=== PATIENT | female | born 1970 | race Caucasian/White ===

== ENCOUNTER → 2017-03-25 | Outpatient (CLI) | payer BC ==
[~2017-03-25] MED LIST: ESTR1TAB24 PO; FRSM10B60; HYDR1TAB75 PO
--- NOTE | 2017-03-30 17:26 | Diagnostic Imaging Report ---
Bilateral screening mammogram The current study was also evaluated with a Computer Aided Detection (CAD) system. INDICATION: Screening. No current complaints stated on the questionnaire. COMPARISON: 02/18/16. FINDINGS: The breasts are composed of heterogeneously dense parenchyma which may decrease mammographic sensitivity. Bilateral retroglandular symmetric appearing implants are seen. Benign-appearing calcifications are noted. Allowing for technique and positional differences, no suspicious change is seen. IMPRESSION: No significant change. ACR BI-RADS Category 2: Benign findings. Result letter will be mailed to the patient. Note: At least 10% of breast cancer is not imaged by mammography. Dictated by: Dictated on workstation # [id number]
== END ==
LOC: RAD 10:33
PROVIDERS: ATTEND Family Medicine
DX: Z12.31 Encounter for screening mammogram for malignant neoplasm of breast (principal)
CPT/HCPCS: 77067

== ENCOUNTER 2018-10-10 09:30 | Outpatient (CLI) | payer BC ==
[~2018-10-10] VITALS: Ht 170.2 cm; Wt 73.5 kg
[2018-10-10] MEDS ORDERED: MINO100C2 PO (09:43)
[2018-10-10] MEDS ORDERED: THYR60TA2 PO (09:43)
[2018-10-10] MEDS ORDERED: CNC1KV IM (09:43)
[2018-10-10] MEDS ORDERED: AMIT10TA6 PO (09:43)
[2018-10-10] MEDS ORDERED: MONT10TA24 PO (09:43)
[2018-10-10] MEDS ORDERED: ESTR20VI IM (09:43)
[2018-10-10] MEDS ORDERED: POTA20TA15 PO (09:43)
== END 2018-10-10 10:08 | disposition home or self-care (01) ==
LOC: PREOP 09:30
PROVIDERS: ATTEND Surgery
DX: Z01.818 Encounter for other preprocedural examination (principal)

== ENCOUNTER 2018-10-19 07:03 | Day surgery (SDC) | payer BC ==
[~2018-10-19] VITALS: Ht 170.2 cm; Wt 75.3 kg
[~2018-10-19 07:03] MED LIST changes: +AMIT10TA6 PO; +CNC1KV IM; +ESTR20VI IM; +MINO100C2 PO; +MONT10TA24 PO; +POTA20TA15 PO; +THYR60TA2 PO
[2018-10-19 07:15] VITALS: BP 139/97
[2018-10-19] MEDS ORDERED: ceFAZolin INJECTION 1,000 MG in NS (IVPB) 50 ML IV ONE (07:15)
[2018-10-19] MEDS ORDERED: CATHETER FLUSH 10 ML SYR IV PRN (07:30)
[2018-10-19] MEDS: LACTATED RINGERS 1,000 ML IV PRN ×2 (07:30→10:24)
[2018-10-19 07:48] LABS: BASOPHILS # (AUTO) 0.1 10^3/uL (0.0-0.1); BASOPHILS % (AUTO) 1 % (0-10); EOSINOPHILS # (AUTO) 0.2 10^3/uL (0.0-0.3); EOSINOPHILS % (AUTO) 3 % (0-10); HEMATOCRIT 45 % (35-52); HEMOGLOBIN 15.1 G/DL (11.5-16.0); LYMPHOCYTES # (AUTO) 2.1 X 10^3 (1.0-4.0); LYMPHOCYTES % (AUTO) 37 % (12-44); MEAN CORPUSCULAR HEMOGLOBIN 29 PG (25-34); MEAN CORPUSCULAR HGB CONC 33 G/DL (32-36); MEAN CORPUSCULAR VOLUME 88 FL (80-99); MONOCYTES # (AUTO) 0.4 X 10^3 (0.0-1.0); MONOCYTES % (AUTO) 8 % (0-12); NEUTROPHILS # (AUTO) 3.1 X 10^3 (1.8-7.8); NEUTROPHILS % (AUTO) 52 % (42-75); PLATELET COUNT 160 10^3/uL (130-400); RED BLOOD COUNT 5.14 10^6/uL (4.35-5.85); RED CELL DISTRIBUTION WIDTH 12.9 % (10.0-14.5); WHITE BLOOD COUNT 5.8 10^3/uL (4.3-11.0)
[2018-10-19] MEDS ORDERED: SCOPOLAMINE 1.5 MG (TRANSDERM-SCOP) PATCH TOP ONE (08:00)
[2018-10-19] MEDS ORDERED: FAMOTIDINE 20MG/2ML IV (PEPCID) IV ONE (08:00)
[2018-10-19] MEDS ORDERED: ONDANSETRON 4 MG/2 ML (SDV) Z0FRAN IV ONE (08:00)
--- NOTE | 2018-10-19 08:10 | Progress Note-Pre Operative ---
Pre-Operative Progress Note H&P Reviewed The H&P was reviewed, patient examined and no changes noted. Date Seen by Provider: Oct 19, 2018 Time Seen by Provider: 08:00 Date H&P Reviewed: Oct 19, 2018 Time H&P Reviewed: 08:05 Pre-Operative Diagnosis: Symptomatic ventral abdominal incisional hernia BON UREÑA APRN Oct 19, 2018 8:09 am
[2018-10-19] MEDS ORDERED: HYDR-3816 PO (08:12)
--- NOTE | 2018-10-19 08:13 | Discharge Inst-Surgical ---
D/C Lap Instructions-KIDO New, Converted, or Re-Newed RX: RX on Chart Follow Up Appt in 2 weeks Activity as tolerated No driving for 24 hours No driving while on pain medications Incentive Spirometry use every 2 hours while awake Regular Diet Symptoms to Report: Fever over 101 degree F, Nausea/Vomiting Infection Signs and Symptoms to report: Increased redness, Foul odor of wound, Increased drainage Bathing instructions: May shower Operative Area Clean/Dry; Keep incision clean/dry If any problems/questions: Contact your physician or go to Emergency Room BON UREÑA APRN Oct 19, 2018 8:13 am
[2018-10-19] MEDS ORDERED: HYDROcodone/APAP 5 MG/325 MG (LORTAB) TAB PO ONE (08:15)
[2018-10-19] MEDS ORDERED: ACETAMINOPHEN 325 MG TABLET PO PRN (08:15)
[2018-10-19] MEDS ORDERED: morphine INJ 10 MG/ML 1ML (SYR OR VIAL) IVP PRN (08:15)
[2018-10-19] MEDS ORDERED: ONDANSETRON 4 MG/2 ML (SDV) Z0FRAN IVP PRN ×2 (08:15→10:30)
[2018-10-19] MEDS ORDERED: OXYC1TAB16 PO (08:22)
[2018-10-19] MEDS ORDERED: BUP/EPI 0.5% 1:200,000 (SENSORCAINE) 30 ML VIAL ONE (08:24)
[2018-10-19] MEDS ORDERED: oxyCODONE/APAP 5/325MG (PERCOCET 5) TABLET PO ONE (08:30)
[2018-10-19] MEDS ORDERED: fentaNYL INJECTION 100 MCG/2 ML AMP ONE (08:31)
[2018-10-19] MEDS ORDERED: MIDAZOLAM 2 MG/2 ML (VERSED) VIAL ONE (08:31)
[2018-10-19] MEDS ORDERED: DEXAMETHASONE 10 MG/ML (DECADRON) 1 ML VIAL ONE (08:40)
[2018-10-19] MEDS ORDERED: SEVOFLURANE (ULTANE) 15 ML INHAL SOLN ONE ×4 (08:40→10:01)
[2018-10-19] MEDS ORDERED: LIDOCAINE PF 2% 5 ML (XYLOCAINE) VIAL ONE (08:40)
[2018-10-19] MEDS ORDERED: proPOfol 200 MG/20 ML (DIPRIVAN) VIAL IV ONE (08:40)
[2018-10-19] MEDS ORDERED: ONDANSETRON 4 MG/2 ML (SDV) Z0FRAN ONE (08:40)
[2018-10-19] MEDS ORDERED: ROCURONIUM 10 MG/ML 5 ML SYRINGE IV ONE (08:40)
[2018-10-19] MEDS ORDERED: KETOROLAC 30 MG/ML VIAL ONE (09:44)
[2018-10-19] MEDS ORDERED: BUPIVACAINE 0.5% 30 ML (SENSORCAINE) VIAL ONE (09:44)
[2018-10-19] MEDS ORDERED: GLYCOPYRROLATE 0.2 MG/ML (ROBINUL) 2 ML VIAL ONE (09:59)
[2018-10-19] MEDS ORDERED: NEOSTIGMINE 1 MG/ML 5 ML SYRINGE ONE (09:59)
--- NOTE | 2018-10-19 10:07 | Progress Note-Post Operative ---
Post-Operative Progess Note Surgeon (s)/Kitchen Utility Associate (s) Surgeon JHONY SENA MD Kitchen Utility Associate: gautam cohen APRN Pre-Operative Diagnosis Symptomatic reducible ventral abdominal incisional hernia Post-Operative Diagnosis same(1.5cm) Procedure & Operative Findings Date of Procedure 10/19/18 Procedure Performed/Findings open ventral abd incisional hernia repair with mesh. Anesthesia Type GET Estimated Blood Loss Estimated blood loss (mL): minimal Specimens/Packing Specimens Removed hernia sac and contents. JHONY SENA MD Oct 19, 2018 10:07 am
[2018-10-19] MEDS ORDERED: morphine INJ 10 MG/ML 1ML (SYR OR VIAL) IVP ONE (10:30)
[2018-10-19] MEDS ORDERED: HYDROmorphone 2 MG/ML VIAL (DILAUDID) IV ONE (10:30)
[2018-10-19] MEDS ORDERED: PROMETHAZINE INJ 25 MG/ML (PHENERGAN) AMP IVP ONE (10:30)
[2018-10-19 11:15] VITALS: BP 130/92
[2018-10-19] MEDS ORDERED: oxyCODONE/APAP 5/325MG (PERCOCET 5) TABLET ONE (11:21)
[2018-10-19 11:45] VITALS: BP 115/86
[2018-10-19 12:15] VITALS: BP 117/78
[2018-10-19 12:25] VITALS: BP 117/78
--- NOTE | 2018-10-19 13:38 | Anesthesia-General Post-Op ---
General Patient Condition Mental Status/LOC: Same as Preop Cardiovascular: Satisfactory Nausea/Vomiting: Absent Respiratory: Satisfactory Pain: Controlled Complications: Absent Post Op Complications Complications None Follow Up Care/Instructions Patient Instructions None needed. Anesthesia/Patient Condition Patient Condition Patient is doing well, no complaints, stable vital signs, no apparent adverse anesthesia problems. No complications reported per nursing. PHYLLIS PRADO CRNA Oct 19, 2018 13:38
--- NOTE | 2018-10-19 15:34 | OPERATIVE REPORT ---
DATE OF SERVICE: 10/19/2018 ATTENDING PRIMARY CARE PHYSICIAN: Dr. Rankin. PREOPERATIVE DIAGNOSIS: Symptomatic reducible periumbilical incisional hernia. POSTOPERATIVE DIAGNOSIS: Symptomatic reducible periumbilical incisional hernia with a defect approximately 1.5 cm in size. PROCEDURE: Open ventral abdominal incisional hernia repair with mesh. SURGEON: Jhony Sena MD LEAD NITRATE PROCESSOR: Max Almaraz APRN ANESTHESIA: General endotracheal. ESTIMATED BLOOD LOSS: Minimal. FINDINGS: A small ventral abdominal incisional hernia with omentum within the hernia sac. DISPOSITION: The patient tolerated the procedure well. INDICATIONS: The patient is a 48-year-old female, we have seen before in the past. We had initially seen her in 2013 for a small umbilical incisional hernia and she did notice slight discomfort and outpouching. She had had three separate laparoscopic procedures done through the same incision before in the past. At that time, the lesion was easily reducible and she wanted to proceed with conservative therapy at that time. She was seen in the office recently and she had reported that the lesion had grown larger in size and does hurt after eating meals as well as after exercise. Again, there was a small periumbilical incisional hernia with a fascial defect approximately 1.5 cm in size, which was reducible; however, tender to palpation. DESCRIPTION OF PROCEDURE: The patient was brought to the operating room, laid supine on the table. After adequate IV pain and sedative medications and general endotracheal intubation, the abdomen was prepped and draped in standard surgical fashion. A 0.5% Marcaine with epinephrine was then used to anesthetize the overlying skin in the supraumbilical rim. A skin incision was then made in a crescent shape along the previous skin incision site. The subcutaneous tissue was then dissected using electrocautery. The hernia sac was identified and completely dissected out using blunt dissection as well as electrocautery. This was dissected down to the fascial base. The fascial defect was approximately 1.5 cm in size. The hernia sac was then opened using Metzenbaum scissors with only omentum within the hernia sac. The hernia sac as well as the contents within the hernia sac, which included the omentum were then resected using electrocautery with visualization of good hemostasis. There were no omental adhesions towards the anterior abdominal wall upon finger sweeping. A 6.4 coated polypropylene mesh was then placed into the fascial defect and then sutured to the fascia using interrupted 0 Prolene sutures transfascially in a concentric manner. Good hemostasis was observed. The base of the skin of the umbilicus was then tethered to the fascia using [id number] 3-0 Vicryl sutures. Subcutaneous tissue was then reapproximated using 3-0 Vicryl interrupted sutures. Skin was closed using 4-0 Monocryl running subcuticular suture. Wound was then cleaned and covered with Dermabond. The wound was then packed with tonsil sponges followed by 4 x 4 gauze followed by a large Op-Site. The patient tolerated the procedure well. We will recommend keeping the pressure dressing on for at least 5 days to prevent seroma formation and then afterwards just to keep the area clean and dry. She is instructed to do no heavy lifting or exertion for the next 2 weeks, then increase activity as tolerated; however, continue to refrain from heavy lifting and exertion until six weeks total time from the surgery date. Job ID: [id number] DocumentID: [id number] Dictated Date: 10/19/2018 10:25:47 Motorcycle Designer Date: 10/19/2018 15:33:23 Dictated By: JHONY SENA MD
== END 2018-10-19 12:25 | disposition home or self-care (01) ==
LOC: SDC 07:03
PROVIDERS: ATTEND Surgery
DX: K43.2 Incisional hernia without obstruction or gangrene (principal); I10 Essential (primary) hypertension; Z79.899 Other long term (current) drug therapy
CPT/HCPCS: 36415; 85025; 87081; 94664

== ENCOUNTER 2019-02-02 12:00 | Outpatient (CLI) | payer BC ==
[~2019-02-02] VITALS: Ht 170.2 cm; Wt 75.3 kg
[~2019-02-02 12:00] MED LIST changes: +HYDR-3816 PO; +OXYC1TAB16 PO
[2019-02-02] MEDS ORDERED: TRIA1TAB5 PO (12:03)
[2019-02-02] MEDS ORDERED: HYDR-700 PO (12:03)
== END 2019-02-02 12:18 | disposition home or self-care (01) ==
LOC: PREOP 12:00
PROVIDERS: ATTEND Surgery
DX: Z01.818 Encounter for other preprocedural examination (principal)

== ENCOUNTER 2019-02-07 10:48 | Day surgery (SDC) | payer BC ==
[~2019-02-07] VITALS: Ht 170.2 cm; Wt 75.3 kg
[~2019-02-07 10:48] MED LIST changes: +HYDR-700 PO; +TRIA1TAB5 PO
--- OUTSIDE RECORDS SUMMARY | 2019-02-07 10:52 | XMS REPORT | Continuity of Care Document ---
Author Author [facility] Organization [facility] Address Unknown Phone Unavailable Allergies Active Description Code Type Severity Reaction Onset Reported/Identified Relationship to Patient Clinical Status Yes codeine [id number] Drug Allergy Mild N/A 05/13/2009 Medications There is no data. Problems Date Dx Coded Attending Type Code Diagnosis Diagnosed By 01/16/2015 Ot 244.9 01/16/2015 Ot 300.00 01/16/2015 Ot 401.9 01/16/2015 Ot 627.4 01/16/2015 Ot 780.79 01/16/2015 Ot V76.12 04/17/2015 Ot 721.0 12/31/2015 Ot N64.59 03/03/2016 ADAMS WALTER MD Ot N63 03/03/2016 ADAMS WALTER MD Ot N64.4 03/03/2016 ADAMS WALTER MD Ot Z98.82 09/21/2016 Ot 721.0 CERVICAL SPONDYLOSIS 09/21/2016 Ot N64.59 OTHER SIGNS AND SYMPTOMS IN BREAST 09/21/2016 ADAMS WATLER MD Ot N63 UNSPECIFIED LUMP IN BREAST 09/21/2016 ADAMS WALTER MD Ot N64.4 MASTODYNIA 09/21/2016 ADAMS WALTER MD Ot Z98.82 BREAST IMPLANT STATUS 09/21/2016 Ot 721.0 CERVICAL SPONDYLOSIS 09/21/2016 Ot N64.59 OTHER SIGNS AND SYMPTOMS IN BREAST 09/21/2016 ADAMS WALTER MD Ot N63 UNSPECIFIED LUMP IN BREAST 09/21/2016 ADAMS WALTER MD Ot N64.4 MASTODYNIA 09/21/2016 ADAMS WALTER MD Ot Z98.82 BREAST IMPLANT STATUS 09/24/2016 Ot 721.0 CERVICAL SPONDYLOSIS 09/24/2016 Ot N64.59 OTHER SIGNS AND SYMPTOMS IN BREAST 09/24/2016 ADAMS WALTER MD Ot N63 UNSPECIFIED LUMP IN BREAST 09/24/2016 ADAMS WALTER MD Ot N64.4 MASTODYNIA 09/24/2016 ADAMS WALTER MD Ot Z98.82 BREAST IMPLANT STATUS 09/24/2016 Ot 721.0 CERVICAL SPONDYLOSIS 09/24/2016 Ot N64.59 OTHER SIGNS AND SYMPTOMS IN BREAST 09/24/2016 ADAMS WALTER MD Ot N63 UNSPECIFIED LUMP IN BREAST 09/24/2016 ADAMS WALTER MD Ot N64.4 MASTODYNIA 09/24/2016 ADAMS WALTER MD Ot Z98.82 BREAST IMPLANT STATUS 11/30/2016 Ot 721.0 CERVICAL SPONDYLOSIS 11/30/2016 Ot N64.59 OTHER SIGNS AND SYMPTOMS IN BREAST 11/30/2016 ADAMS WALTER MD Ot N63 UNSPECIFIED LUMP IN BREAST 11/30/2016 ADAMS WALTER MD Ot N64.4 MASTODYNIA 11/30/2016 ADAMS WALTER MD Ot Z98.82 BREAST IMPLANT STATUS 04/07/2017 POWER HARPER, ARASELI S Ot Z12.31 ENCNTR SCREEN MAMMOGRAM FOR MALIGNANT NE 06/07/2017 Ot 721.0 CERVICAL SPONDYLOSIS 06/07/2017 Ot N64.59 OTHER SIGNS AND SYMPTOMS IN BREAST 06/07/2017 ADAMS WALTER MD Ot N63 UNSPECIFIED LUMP IN BREAST 06/07/2017 ADAMS WALTER MD Ot N64.4 MASTODYNIA 06/07/2017 ADAMS WALTER MD Ot Z98.82 BREAST IMPLANT STATUS 06/07/2017 POWER HARPER, ARASELI S Ot Z12.31 ENCNTR SCREEN MAMMOGRAM FOR MALIGNANT NE 12/28/2017 Ot 721.0 CERVICAL SPONDYLOSIS 12/28/2017 Ot N64.59 OTHER SIGNS AND SYMPTOMS IN BREAST 12/28/2017 ADAMS WALTER MD Ot N63 UNSPECIFIED LUMP IN BREAST 12/28/2017 ADAMS WALTER MD Ot N64.4 MASTODYNIA 12/28/2017 ADAMS WALTER MD Ot Z98.82 BREAST IMPLANT STATUS 12/28/2017 POWER HARPER, ARASELI S Ot Z12.31 ENCNTR SCREEN MAMMOGRAM FOR MALIGNANT NE 01/05/2018 Ot 721.0 CERVICAL SPONDYLOSIS 01/05/2018 Ot N64.59 OTHER SIGNS AND SYMPTOMS IN BREAST 01/05/2018 ADAMS WALTER MD Ot N63 UNSPECIFIED LUMP IN BREAST 01/05/2018 ADAMS WALTER MD Ot N64.4 MASTODYNIA 01/05/2018 ADAMS WALTER MD Ot Z98.82 BREAST IMPLANT STATUS 01/05/2018 ORENDER DO, ARASELI S Ot Z12.31 ENCNTR SCREEN MAMMOGRAM FOR MALIGNANT NE 04/03/2018 ORENDER DO, ARASELI S Ot Z12.31 ENCNTR SCREEN MAMMOGRAM FOR MALIGNANT NE 04/03/2018 ORENDER DO, ARASELI S Ot Z98.82 BREAST IMPLANT STATUS 04/13/2018 ORENDER DO, ARASELI S Ot Z12.31 ENCNTR SCREEN MAMMOGRAM FOR MALIGNANT NE 04/13/2018 ORENDER DO, ARASELI S Ot Z98.82 BREAST IMPLANT STATUS 10/09/2018 JHONY SENA MD Ot Z01.818 ENCOUNTER FOR OTHER PREPROCEDURAL EXAMIN 10/10/2018 JHONY SENA MD Ot Z01.818 ENCOUNTER FOR OTHER PREPROCEDURAL EXAMIN 10/10/2018 JHONY SENA MD, Ot Z01.818 ENCOUNTER FOR OTHER PREPROCEDURAL EXAMIN 10/19/2018 JHONY SENA MD Ot I10 ESSENTIAL (PRIMARY) HYPERTENSION 10/19/2018 JHONY SENA MD Ot K43.2 INCISIONAL HERNIA WITHOUT OBSTRUCTION OR 10/19/2018 JHONY SENA MD Ot Z79.899 OTHER HALFWAY (CURRENT) DRUG THERAPY 10/20/2018 JHONY SENA MD Ot I10 ESSENTIAL (PRIMARY) HYPERTENSION 10/20/2018 JHONY SENA MD Ot K43.2 INCISIONAL HERNIA WITHOUT OBSTRUCTION OR 10/20/2018 JHONY SENA MD Ot Z79.899 OTHER HALFWAY (CURRENT) DRUG THERAPY 02/02/2019 JHONY SENA MD Ot Z01.818 ENCOUNTER FOR OTHER PREPROCEDURAL EXAMIN 02/02/2019 JHONY SENA MD Ot Z01.818 ENCOUNTER FOR OTHER PREPROCEDURAL EXAMIN 02/02/2019 JHONY SENA MD Ot Z01.818 ENCOUNTER FOR OTHER PREPROCEDURAL EXAMIN Procedures There is no data. Results Test Result Range Complete blood count (CBC) with automated white blood cell (WBC) differential - 10/19/18 07:34 Blood leukocytes automated count (number/volume) 5.8 10*3/uL 4.3-11.0 Blood erythrocytes automated count (number/volume) 5.14 10*6/uL 4.35-5.85 Venous blood hemoglobin measurement (mass/volume) 15.1 g/dL 11.5-16.0 Blood hematocrit (volume fraction) 45 % 35-52 Automated erythrocyte mean corpuscular volume 88 [foz_us] 80-99 Automated erythrocyte mean corpuscular hemoglobin (mass per erythrocyte) 29 pg 25-34 Automated erythrocyte mean corpuscular hemoglobin concentration measurement ( mass/volume) 33 g/dL 32-36 Automated erythrocyte distribution width ratio 12.9 % 10.0-14.5 Automated blood platelet count (count/volume) 160 10*3/uL 130-400 Automated blood platelet mean volume measurement 13.0 [foz_us] 7.4-10.4 Automated blood neutrophils/100 leukocytes 52 % 42-75 Automated blood lymphocytes/100 leukocytes 37 % 12-44 Blood monocytes/100 leukocytes 8 % 0-12 Automated blood eosinophils/100 leukocytes 3 % 0-10 Automated blood basophils/100 leukocytes 1 % 0-10 Blood neutrophils automated count (number/volume) 3.1 10*3 1.8-7.8 Blood lymphocytes automated count (number/volume) 2.1 10*3 1.0-4.0 Blood monocytes automated count (number/volume) 0.4 10*3 0.0-1.0 Automated eosinophil count 0.2 10*3/uL 0.0-0.3 Automated blood basophil count (count/volume) 0.1 10*3/uL 0.0-0.1 Methicillin resistant Staphylococcus aureus (MRSA) screening culture - 07:34 Methicillin resistant Staphylococcus aureus (MRSA) screening culture NEG NRG Encounters ACCT No. Visit Date/Time Discharge Status Pt. Type Provider Facility Loc./Unit Complaint [id number] 02/02/2019 12:00:00 02/02/2019 12:18:00 DIS Outpatient JHONY SENA MD [facility] PREOP COLONOSCOPY [id number] 10/19/2018 07:03:00 10/19/2018 12:25:00 DIS Outpatient JHONY SENA MD [facility] SDC VENTRAL ABDOMINAL INCISIONAL HERNIA [id number] 10/10/2018 09:30:00 10/10/2018 10:08:00 DIS Outpatient JHONY SENA MD [facility] PREOP VENTRAL ABDOMINAL INCISIONAL HERNIA [id number] 03/31/2018 10:54:00 03/31/2018 23:59:59 CLS Outpatient ARASELI STEVE DO [facility] RAD SCREENING [id number] 03/25/2017 10:33:00 03/25/2017 23:59:59 CLS Outpatient ARASELI STEVE DO [facility] RAD Z12.31 [id number] 02/18/2016 12:34:00 02/18/2016 23:59:59 CLS Outpatient ADAMS WALTER MD [facility] RAD LEFT BREAST PAIN [id number] 06/05/2014 08:54:00 06/05/2014 23:59:59 CLS Outpatient [id number] 02/07/2019 10:48:00 ACT Outpatient JHONY SENA MD [facility] ENDO SCREENING [id number] 12/18/2015 10:26:00 Document Registration [id number] 01/16/2015 12:38:00 Document Registration 03/201701/25/2019 18:09:28 01/25/2019 23:59:59 CLS Outpatient
[2019-02-07] MEDS ORDERED: NS IV 500 ML 500 ML IV PRN (10:54)
[2019-02-07] MEDS ORDERED: MIDAZOLAM 2 MG/2 ML (VERSED) VIAL IVP ONE (11:00)
[2019-02-07] MEDS ORDERED: LIDOCAINE JELLY 2% 6 ML SYRINGE MM PRN (11:00)
[2019-02-07] MEDS ORDERED: fentaNYL INJECTION 100 MCG/2 ML AMP IVP ONE (11:00)
[2019-02-07 11:10] VITALS: BP 138/94
[2019-02-07] MEDS ORDERED: MIDAZOLAM 2 MG/2 ML (VERSED) VIAL ONE ×5 (12:17→12:18)
[2019-02-07] MEDS ORDERED: fentaNYL INJECTION 100 MCG/2 ML AMP ONE ×2 (12:18→13:05)
[2019-02-07] MEDS ORDERED: LIDOCAINE JELLY 2% 6 ML SYRINGE ONE (12:18)
--- NOTE | 2019-02-07 13:45 | Conscious Sedation/ASA ---
Conscious Sedation Pre-Proced Time 12:00 ASA Score 2 For ASA 3 and 4: Consider anesthesia and medical clearance. Also, for patients with a history of failed moderate sedation consider anesthesia. Airway Lungs Heart ASA score ASA 1: a normal healthy patient ASA 2: a patient with a mild systemic disease (mid diabetes, controlled hypertension, obesity ASA 3: a patient with a severe systemic disease that limits activity (angina , COPD, prior Myocardial infarction) ASA 4: a patient with an incapacitating disease that is a constant threat to life (CHF, renal failure) ASA 5: a moribund patient not expected to survive 24 hrs. (ruptured aneurysm) ASA 6: a declared brain- patient whose organs are being harvested. For emergent operations, add the letter E after the classification Mallampati Classification Grade 2 Sedation Plan Analgesia, Amnesia, Plan communicated to team members, Discussed options with patient/fam, Discussed risks with patient/fam The patient is an appropriate candidate to undergo the planned procedure, sedation, and anesthesia. The patient immediately re-assessed prior to indication. JHONY SENA MD Feb 07, 2019 13:45
--- NOTE | 2019-02-07 13:46 | Progress Note-Pre Operative ---
Pre-Operative Progress Note H&P Reviewed The H&P was reviewed, patient examined and no changes noted. Date Seen by Provider: Feb 07, 2019 Time Seen by Provider: 12:00 Date H&P Reviewed: Feb 07, 2019 Time H&P Reviewed: 12:00 Pre-Operative Diagnosis: screening colonoscopy JHONY SENA MD Feb 07, 2019 13:46
--- NOTE | 2019-02-07 13:47 | Progress Note-Post Operative ---
Post-Operative Progess Note Surgeon (s)/Manager Basketball (s) Surgeon JHONY SENA MD Manager Basketball: none Pre-Operative Diagnosis screening colonoscopy Post-Operative Diagnosis normal colon and rectum Procedure & Operative Findings Date of Procedure 02/07/19 Procedure Performed/Findings colonoscopy Anesthesia Type cs Estimated Blood Loss Estimated blood loss (mL): minimal Specimens/Packing Specimens Removed none JHONY SENA MD Feb 07, 2019 13:47
--- NOTE | 2019-02-07 13:48 | Discharge Inst-Surgical ---
D/C Lap Instructions-JAIDA Follow Up 10 years Activity as tolerated High Fiber Diet 25g or more per day Avoid Alcohol, Caffeine, Spicy Alanreed and Acid foods. Drink 64 fluid oz or more of fluids per day. Symptoms to Report: Fever over 101 degree F, Nausea/Vomiting If any problems/questions: Contact your physician or go to Emergency Room JHONY SENA MD Feb 07, 2019 13:48
[2019-02-07 13:50] VITALS: BP 116/71
[2019-02-07] MEDS ORDERED: ONDANSETRON 4 MG/2 ML (SDV) Z0FRAN IV PRN (14:00)
[2019-02-07] MEDS ORDERED: morphine INJ 10 MG/ML 1ML (SYR OR VIAL) IV PRN (14:00)
[2019-02-07] MEDS ORDERED: HYDROcodone/APAP 5 MG/325 MG (LORTAB) TAB PO PRN (14:00)
[2019-02-07] MEDS ORDERED: ACETAMINOPHEN 325 MG TABLET PO PRN (14:00)
[2019-02-07 14:20] VITALS: BP 119/75
--- NOTE | 2019-02-07 18:32 | OPERATIVE REPORT ---
DATE OF SERVICE: 02/07/2019 ATTENDING PRIMARY CARE PHYSICIAN: Dr. Rankin. PREOPERATIVE DIAGNOSIS: Screening colonoscopy. POSTOPERATIVE DIAGNOSIS: Normal colon and rectum. PROCEDURE: Colonoscopy. SURGEON: Jhony Sena MD ANESTHESIA: Conscious sedation. ESTIMATED BLOOD LOSS: Minimal. FINDINGS: No significant hemorrhoids were identified. The remainder of the rectum and colon were normal. There were no polyps or any neoplasms identified. DISPOSITION: The patient tolerated the procedure well. INDICATIONS: The patient is a 48-year-old female in need of screening colonoscopy. She states that she is otherwise doing well. Does not report any major issues with constipation or diarrhea as well as no red blood per rectum nor any dark tarry stools. She also does not report any family history of colon cancer. DESCRIPTION OF PROCEDURE: The patient was brought to the endoscopy suite, laid in the left lateral decubitus position. After adequate IV pain and sedative medications and conscious sedation anesthesia, a digital rectal examination was performed. No significant hemorrhoids were identified. Normal sphincter tone was felt and there were no palpable masses. The endoscope was then intubated into the anus and rectum gently insufflated. The endoscope was then advanced to the valves of Sanchez of the rectum with no polyps or any neoplasms identified. We then proceeded to the sigmoid colon where no diverticulosis identified. The endoscope was then advanced to the remainder of the descending, transverse and ascending colon to the cecum. These segments were normal. There were no polyps or any neoplasms identified throughout the colon or rectum. The endoscope was then slowly withdrawn while taking a second look and suctioning of residual air with no additional findings. The patient tolerated the procedure well. We will recommend continued medical management with a high fiber diet with at least 25 grams of fiber per day as well as significant amounts of water daily to promote soft stools on a daily basis. She does not need another colonoscopy for another 10 years. Job ID: [id number] DocumentID: [id number] Dictated Date: 02/07/2019 13:40:46 Planimeter Operator Date: 02/07/2019 18:31:58 Dictated By: JHONY SENA MD
== END 2019-02-07 14:25 | disposition home or self-care (01) ==
LOC: ENDO 10:48
PROVIDERS: ATTEND Surgery
DX: Z12.11 Encounter for screening for malignant neoplasm of colon (principal); I10 Essential (primary) hypertension; Z88.5 Allergy status to narcotic agent; Z79.899 Other long term (current) drug therapy

== ENCOUNTER → 2019-04-02 | Outpatient (CLI) | payer BC ==
--- NOTE | 2019-04-02 11:33 | Diagnostic Imaging Report ---
INDICATION: Routine screening. COMPARISON: 03/31/2018 and 03/25/2017. TECHNIQUE: 2D and 3D bilateral screening mammography was performed with CAD. FINDINGS: Bilateral breast implants are again noted. The implant contours appear smooth. Scattered fibroglandular densities are identified bilaterally. A tiny benign-appearing nodular density in the medial right breast appears stable. No new mass or malignant appearing microcalcifications are seen. The axillae are unremarkable. IMPRESSION: No mammographic features suspicious for malignancy are identified. ACR BI-RADS Category 2: Benign findings. Result letter will be mailed to the patient. Note: At least 10% of breast cancer is not imaged by mammography. Dictated by: Dictated on workstation # [id number]
== END ==
LOC: RAD 09:12
PROVIDERS: ATTEND Family Medicine
DX: Z12.31 Encounter for screening mammogram for malignant neoplasm of breast (principal)
CPT/HCPCS: 77067

== ENCOUNTER → 2020-04-15 | Outpatient (CLI) | payer BC ==
[~2020-04-15] MED LIST changes: +HYDR-34 PO; -HYDR-3816 PO; -MINO100C2 PO; +MINO100C5 PO; -MONT10TA24 PO; +MONT10TA26 PO
--- NOTE | 2020-04-15 14:37 | Diagnostic Imaging Report ---
INDICATION: Left breast lump. COMPARISON: Correlation is made with the diagnostic mammogram from earlier this same day. FINDINGS: Sonographic interrogation of the area of lump in the left breast was performed. This corresponds to the 11 o'clock location, 7 cm from the nipple. There is a circumscribed ovoid cyst at this location measuring 1.8 x 0.8 x 1.3 cm. There is some debris in the dependent portion. No internal vascularity is seen. IMPRESSION: 1. Complex cyst at the 11 o'clock location of the left breast 7 cm from the nipple corresponding to the palpable abnormality. 2. Due to the debris and complexity, a followup left breast ultrasound in 6 months is recommended to confirm stability and/or clearing. ACR BI-RADS Category 3: Probably benign findings. Dictated by: Dictated on workstation # [id number]
--- NOTE | 2020-04-15 18:18 | Diagnostic Imaging Report ---
Indication: Left breast lump for last several days. Correlation is made with prior mammogram from 04/02/2019 and 03/31/2018. 2-D and 3-D bilateral diagnostic mammography was performed with CAD. BB marker was placed at the area of palpable abnormality in the upper left breast. Patient has bilateral subpectoral breast implants. Implant contours remain smooth. Breast parenchyma remains heterogeneously dense, limiting the sensitivity of mammography. No discrete mass is identified. In particular, no abnormality at the area of palpable abnormality left breast is seen. No suspicious microcalcifications are identified. Axillae are unremarkable. IMPRESSION: BI-RADS 0 No suspicious mammographic features are identified. Even so, a directed sonographic interrogation of the area of palpable abnormality left breast is recommended and will be performed today. ACR BI-RADS Category 0: Incomplete. (Needs additional imaging evaluation). Result letter will be mailed to the patient. Note: At least 10% of breast cancer is not imaged by mammography. Dictated by: Dictated on workstation # [id number]
== END ==
LOC: RAD 12:53
PROVIDERS: ATTEND Family Medicine
DX: Z12.31 Encounter for screening mammogram for malignant neoplasm of breast (principal); N63.20 Unspecified lump in the left breast, unspecified quadrant; N60.02 Solitary cyst of left breast
CPT/HCPCS: 76642; 77062; 77066

== ENCOUNTER → 2021-04-16 | Outpatient (CLI) | payer BC ==
[~2021-04-16] MED LIST changes: -AMIT10TA6 PO; +AMT10T PO; -MONT10TA26 PO; +MONT10TA32 PO
--- NOTE | 2021-04-16 15:05 | Diagnostic Imaging Report ---
INDICATION: Routine screening. Comparison is made with prior mammogram from 04/15/2020 and 04/02/2019. 2-D and 3-D bilateral screening mammography was performed with CAD. Both breasts are heterogeneously dense, limiting the sensitivity of mammography. Patient does have bilateral subpectoral breast implants. Implant contours are smooth. The left breast is unremarkable. There is a density in the medial aspect of the right breast on the implant displaced view. Additional views of this area recommended. No suspicious calcifications are seen. Axillae are unremarkable. IMPRESSION: BI-RADS 0 Right breast density. Additional views recommended for further evaluation. ACR BI-RADS Category 0: Incomplete. (Needs additional imaging evaluation). Result letter will be mailed to the patient. Note: At least 10% of breast cancer is not imaged by mammography. Dictated by: Dictated on workstation # [id number]
== END ==
LOC: RAD 11:00
PROVIDERS: ATTEND Family Medicine
DX: Z12.31 Encounter for screening mammogram for malignant neoplasm of breast (principal)
CPT/HCPCS: 77063; 77067

== ENCOUNTER → 2021-04-22 | Outpatient (CLI) | payer BC ==
--- NOTE | 2021-04-22 14:36 | Diagnostic Imaging Report ---
INDICATION: Right breast density. Patient presents for additional views. COMPARISON: 04/16/2021. TECHNIQUE: Unilateral right 2D and 3D diagnostic mammography was performed with CAD. This included spot compression CC as well as rolled CC views of the right breast. FINDINGS: Additional views show a persistent density in the medial aspect of the right breast. This appears to be inferiorly located on the tomographic images. This is approximately 7 cm from the nipple. IMPRESSION: Persistent density in the lower inner right breast at mid to posterior depth. Further evaluation with ultrasound is recommended and will be performed today. ACR BI-RADS Category 0: Incomplete. (Needs additional imaging evaluation). Result letter will be mailed to the patient. Note: At least 10% of breast cancer is not imaged by mammography. Dictated by: Dictated on workstation # [id number]
--- NOTE | 2021-04-22 18:09 | Diagnostic Imaging Report ---
INDICATION: Right breast density. Correlation is made with diagnostic mammogram earlier the same day and screening mammogram from 04/16/2021. Sonographic interrogation of the lower right breast was performed. There is a slightly irregular hypoechoic nodule at the 6 o'clock location of the right breast, 7 cn from the nipple measuring 7 mm in diameter. This likely accounts for the mammographic density. This is near the chest wall and breast implant. There is some questionable posterior acoustic shadowing. No other masses are identified. IMPRESSION: BI-RADS Category 4 Irregular hypoechoic 7 mm nodule 6 o'clock location of the right breast, 7 cm from the nipple, perhaps accounting for the mammographic density. Tissue sampling is recommended. This would be amenable to ultrasound-guided core biopsy. ACR BI-RADS Category 4: Suspicious abnormality. Result letter will be mailed to the patient. Note: At least 10% of breast cancer is not imaged by mammography. Dictated by: Dictated on workstation # [id number]
== END ==
LOC: RAD 13:00
PROVIDERS: ATTEND Family Medicine
DX: N63.15 Unspecified lump in the right breast, overlapping quadrants (principal)
CPT/HCPCS: 76642; 77065; G0279

== ENCOUNTER → 2021-04-29 | Outpatient (CLI) | payer BC ==
[~2021-04-29] MED LIST changes: +LIDOCAINE 1% INJ 20 ML 20 ML VIAL INJ ONE
--- NOTE | 2021-04-29 11:25 | Diagnostic Imaging Report ---
Indication: A right breast nodule. Patient presents for ultrasound-guided biopsy. Patient brought to the sonographic suite placed on table in the supine position. Ultrasound imaging of the right breast was performed to evaluate appropriate entry site. The right breast was then prepped and draped in usual sterile fashion. Small amount 1% lidocaine was utilized for local anesthesia. A total of 3 core biopsies were obtained of the ill-defined hypoechoic nodule at the 6:00 location of the right breast, 7 cm from the nipple utilizing a 14-gauge achieve needle. A marker clip was then deployed. Hemostasis was obtained using manual compression. Patient tolerated procedure well and was sent for post procedure mammogram in satisfactory condition. IMPRESSION: Successful ultrasound guided core biopsy of the hypoechoic nodule 6:00 location right breast, 7 cm from the nipple. Pathology results are currently pending. Dictated by: Dictated on workstation # [id number]
--- NOTE | 2021-04-29 11:43 | Diagnostic Imaging Report ---
INDICATION: Right breast biopsy. 2-D CC and ML views of the right breast were obtained. 2-D CC and MLO implant displaced views were also obtained, post ultrasound-guided core biopsy. Images demonstrate subpectoral breast implant on the right. There is a marker clip in the inferior medial aspect of the right breast, close to the implant. The marker clip appears to be in the region of previously noted ill-defined density in the medial right breast. IMPRESSION: Satisfactory marker clip placement, status post ultrasound-guided core biopsy. Dictated by: Dictated on workstation # [id number]
== END ==
LOC: RAD 08:06
PROVIDERS: ATTEND Family Medicine
DX: N63.15 Unspecified lump in the right breast, overlapping quadrants (principal)
CPT/HCPCS: 19083; 77065; G0279

== ENCOUNTER → 2022-02-18 | Outpatient (CLI) | payer BC ==
[~2022-02-18] MED LIST changes: -ESTR20VI IM; +ESTR20VI7 IM; -LIDOCAINE 1% INJ 20 ML 20 ML VIAL INJ ONE; +MONT-40 PO; -MONT10TA32 PO; +POTA-179 PO; -POTA20TA15 PO
--- NOTE | 2022-02-18 16:01 | Diagnostic Imaging Report ---
INDICATION: Routine screening. COMPARISON is made with prior mammograms from 04/16/2021 and 04/15/2020. 2-D and 3-D bilateral screening mammography was performed with CAD. Bilateral subpectoral breast implants are noted. Implant contours are smooth. Both breasts are heterogeneously dense, limiting the sensitivity of mammography. A biopsy marker clip in the medial right breast is noted. There is benign calcification in the right breast. Benign calcifications are noted in the left breast. Circumscribed nodules in the lower and outer aspects of the right breast are noted, new since the prior exam. This may represent a cluster of cysts. No other masses are seen. Axillae are unremarkable. IMPRESSION: BI-RADS 0 Development of circumscribed nodules lower outer right breast mid depth, perhaps a cluster of cysts. Further evaluation with ultrasound is recommended. Dictated by: Dictated on workstation # [id number]
== END ==
LOC: RAD 14:29
PROVIDERS: ATTEND Family Medicine
DX: Z12.31 Encounter for screening mammogram for malignant neoplasm of breast (principal); N63.13 Unspecified lump in the right breast, lower outer quadrant
CPT/HCPCS: 77063; 77067

== ENCOUNTER → 2022-02-24 | Outpatient (CLI) | payer BC ==
--- NOTE | 2022-02-24 18:43 | Diagnostic Imaging Report ---
INDICATION: Right breast nodule. COMPARISON: Correlation is made with the screening mammogram from 02/18/2022. In addition, comparison is made with prior right breast ultrasound from 04/22/2021. EXAMINATION: Sonographic interrogation of the lower outer right breast was performed. FINDINGS: There is a simple cyst at the 7:00 location, 11 cm from the nipple measuring 11 mm x 4 mm x 7 mm. There is a cluster of cysts at the 7:00 location, 8 cm from the nipple measuring in aggregate 11 mm x 3 mm x 8 mm. This cluster likely accounts for the mammographic density. The somewhat irregular hypoechoic nodule at the 6:00 location of the right breast, 7 cm from the nipple, is again noted. This has been previously biopsied in April 2021. Biopsy results were benign. This measures very similar to perhaps minimally larger when compared with prior right breast ultrasound. It is approximately 7 mm x 8 mm in size. In addition, there is a mixed echogenicity lesion at the area of the patient's palpable abnormality, at approximately the 9:00 location, measuring 2.4 x 1.2 x 2.2 cm. This shows some increased echogenicity as well as some cystic changes. This is just below the skin surface. No definite internal vascularity is present. IMPRESSION: 1. Simple cysts in the lower outer right breast, accounting for the mammographic abnormality. 2. Indeterminate, mixed echogenicity lesion at the area of the patient's palpable abnormality in the lateral right breast. After conversation with the patient, patient states that this is new over the last year. The lesion is firm. This would be amenable to tissue sampling. This would be amenable to ultrasound guidance. 3. Slightly irregular hypoechoic nodule at the 6:00 location of the right breast, 7 cm from the nipple. While this was previously biopsied in April 2021, with a benign result, this remains somewhat irregular and may be slightly increased in size. Breast MRI would be recommended for further evaluation and additional characterization. Based on the breast MRI result, attempted rebiopsy of this lesion could be performed with ultrasound guidance. ACR BI-RADS Category 0: Incomplete. (Needs additional imaging evaluation). Result letter will be mailed to the patient. Note: At least 10% of breast cancer is not imaged by mammography. Dictated by: Dictated on workstation # [id number]
== END ==
LOC: RAD 14:10
PROVIDERS: ATTEND Family Medicine
DX: N60.01 Solitary cyst of right breast (principal); Z98.890 Other specified postprocedural states

== ENCOUNTER → 2022-03-02 | Outpatient (CLI) | payer BC ==
[~2022-03-02] MED LIST changes: +GADOBUTROL 15 MMOL/15 ML (GADAVIST) VIAL IV ONE
--- NOTE | 2022-03-03 17:56 | Diagnostic Imaging Report ---
EXAMINATION: MRI BREAST BILAT W W/O CON INDICATION: Problem solving MRI. Palpable lump in the right breast and suspected increase in size of previously biopsied right breast mass at 6:00. TECHNIQUE: Utilizing a 1.5 Radha magnet, the patient was placed in the prone position with a dedicated breast coil in place. Axial STIR, T2 fat sat, T1 and T1 fat-sat images are obtained without contrast. Postcontrast high-resolution dynamic images are also obtained. Pre and post contrasted images are then evaluated with Cognio for evaluation of possible angiogenesis. 0.7 mL of Gadavist gadolinium contrast material was administered intravenously. COMPARISON: Multiple prior mammogram and breast ultrasound exams. Most recent mammogram was performed on 02/18/2022 and most recent ultrasound performed on 02/24/2022. FINDINGS: There is little to no suppression of fat signal on the sequence labeled "T2 fat sat", a technical factor that somewhat limits evaluation. RIGHT BREAST: The breast is composed of scattered fibroglandular tissue. There is mild background parenchymal enhancement, with scattered foci of enhancement also related to background. A retropectoral silicone implant is in place. There are no findings to suggest intracapsular or extracapsular rupture. There is no adriana-implant fluid collection or findings to suggest free silicone. In the 7:00 far posterior breast immediately adjacent to the implant, there is a 1.3 x 2.5 x 1.5 cm heterogeneous, fat-containing peripherally enhancing mass (image 171 series 1101). This is felt to correspond with prior ultrasound findings at the site of the patient's reported palpable lump. There is no other suspicious mass or non-mass enhancement. There is focal round susceptibility artifact near 6:00 immediately adjacent to the breast implant. This is felt to correspond with a calcified mass seen on mammogram as well as the previously biopsied hypoechoic mass at 6:00 on ultrasound. There is no axillary or internal mammary adenopathy. LEFT BREAST: The breast is composed of scattered fibroglandular tissue. There is mild background parenchymal enhancement, with scattered foci of enhancement also related to background. A retropectoral silicone implant is in place. There are no findings to suggest intracapsular or extracapsular rupture. There is no adriana-implant fluid collection or findings to suggest free silicone. There are multiple, similar appearing, heterogeneous, fat-containing peripherally enhancing masses immediately adjacent to the breast implant. This includes at the 4:00, 5:00 and 7:00 positions (for example, images 152 and 184 series 1103). These are also very similar in appearance to the aforementioned mass in the 7:00 right breast. There is no other suspicious mass or non-mass enhancement. There is no axillary or internal mammary adenopathy. IMPRESSION: There are multiple, similar appearing masses in both breasts that are immediately adjacent to the patient's breast implants. One of these is located in the 7:00 right breast and is felt to correspond with prior sonographic findings at the site of the patient's reported palpable lump. All of these are favored to represent fat necrosis, however, remain indeterminate. Given that the patient reported a new palpable lump, ultrasound biopsy of the right breast mass is recommended to exclude malignancy. Seeing that diagnostic mammogram has not yet been performed for the patient's reported palpable lump, diagnostic mammogram of the right breast (and left if indicated) is recommended prior to biopsy. This mass would likely be seen on exaggerated lateral views and if it has a characteristic mammographic appearance of fat necrosis, the findings can be downgraded to benign. There is no suspicious finding in the 6:00 right breast. There is focal susceptibility artifact in this region of the breast, which is felt to correspond to a calcified mass seen on mammogram and the previously biopsied sonographic mass at 6:00 which yielded fat necrosis. The patient's implants are intact, without evidence of intracapsular/extracapsular rupture or free silicone. There is no lymphadenopathy. BI-RADS Category 4: Suspicious Dictated by: Dictated on workstation # [id number]
== END ==
LOC: RAD 12:12
PROVIDERS: ATTEND Family Medicine
DX: N63.13 Unspecified lump in the right breast, lower outer quadrant (principal)
CPT/HCPCS: 77049

== ENCOUNTER → 2022-09-29 | Outpatient (CLI) | payer BC ==
[~2022-09-29] MED LIST changes: -GADOBUTROL 15 MMOL/15 ML (GADAVIST) VIAL IV ONE
--- NOTE | 2022-09-29 11:55 | Diagnostic Imaging Report ---
CLINICAL INDICATION: Patient with cervical spine pain. Old neck injury and currently gets pain injections. EXAM: MRI of the cervical spine performed without IV contrast. Sequences include sagittal T1, sagittal T2, sagittal T2 fat-sat, and axial T2. COMPARISON: X-ray of the cervical spine dated 01/16/2015. FINDINGS: There is no acute cervical spine fracture or dislocation. There are Modic type I degenerative signal changes involving the C5-C6 endplate regions. There are Modic type II degenerative signal changes involving the C4-C5 region. Limited visualization of the posterior fossa is unremarkable. Cervical spinal cord shows no abnormal signal and has normal cord caliber. There is straightening of the cervical spine posture. There are degenerative spurs and facet arthropathy involving the cervical spine. Paraspinal soft tissue structures are unremarkable. C1-C2: There are degenerative spurs involving the atlanto-odontoid interval anteriorly. There is no significant central canal stenosis. C2-C3: There is moderate right facet arthropathy and mild left facet arthropathy. There is tzpy-gs-adevibmh right neural foramen narrowing and no significant left neural foramen narrowing. There is no significant central canal stenosis. C3-C4: There is a grade 1 anterolisthesis of C3 on C4. There is moderate bilateral facet arthropathy. There are hypertrophic right uncinate spurs. There is severe right neural foramen narrowing and no significant left neural foramen narrowing. There is mild central canal stenosis. C4-C5: There is grade 1 anterolisthesis of C4 on C5. There is severe left facet arthropathy/hypertrophy and mild right facet arthropathy. There is severe left neural foramen narrowing and lrog-kc-swydgafr right neural foramen narrowing. There is mild central canal stenosis. C5-C6: There is a diffuse disc bulge with mild loss of disc space height. There are bilateral uncinate spurs. There is ligamentum flavum buckling. There is moderate bilateral facet arthropathy. There is nfqe-zt-zmiukdgu central canal stenosis. There is txiw-ay-fkkxwfgk bilateral neural foramen narrowing. C6-C7: There is a diffuse disc bulge with bilateral uncinate spurs and posterior disc spurs. There is mild bilateral facet arthropathy. There is severe right neural foramen narrowing and tegjczgh-or-wosmgr left neural foramen narrowing. There is severe central canal stenosis. C7-T1: There is mild bilateral facet arthropathy. There is no significant central spinal canal or neural foramen narrowing. IMPRESSION: 1: There is no acute cervical spine fracture. 2: There is exqowtje-gs-pyfzwp multilevel cervical spine degenerative disc disease, as described above. Dictated by: Dictated on workstation # [id number]
== END ==
LOC: RAD 07:46
PROVIDERS: ATTEND Pain Medicine Interventional Pain Medicine
DX: M47.22 Other spondylosis with radiculopathy, cervical region (principal); M47.813 Spondylosis without myelopathy or radiculopathy, cervicothoracic region; M50.123 Cervical disc disorder at C6-C7 level with radiculopathy; M48.02 Spinal stenosis, cervical region; M43.12 Spondylolisthesis, cervical region
CPT/HCPCS: 72141

== ENCOUNTER → 2023-10-25 | Outpatient (CLI) | payer BC ==
--- NOTE | 2023-10-26 11:53 | Diagnostic Imaging Report ---
3-D bilateral screening mammogram. 2-D and 3-D bilateral screening mammography was performed with CAD. This study was compared to the prior exams of 02/18/2022, 04/16/2021 and 04/15/2020. There are no current complaints. As noted on the previous studies, there are bilateral breast implants. The implants seems similar to the prior exam. There is still no evidence for an extracapsular rupture of either implant to suggest that the integrity of the implants has been compromised. The fibroglandular tissue overlying the implants is heterogeneously dense. This does limit the sensitivity of this exam. The previous mammogram of 02/18/2022 noted the development of circumscribed nodules in the lower outer quadrant of the right breast at middle depth. The subsequent ultrasound exam performed on 02/24/2022 noted simple cysts in the lower outer aspect of the right breast. These cysts were felt to correspond to the mammographic abnormality. However, there was another indeterminate mixed echogenicity lesion in the region of the patient's palpable abnormality in the lateral aspect of the right breast. The subsequent MRI exam of 03/02/2022 noted a 1.3 x 2.5 x 1.5 cm heterogeneous fat containing peripherally enhancing mass in the 7 o'clock position in the far posterior aspect of the right breast. This was felt to be related to the patient's palpable abnormality and was deemed to be suspicious for malignancy. It is my understanding that the patient has not undergone an ultrasound-guided biopsy of this mass. On the craniocaudad view of this exam, there are 2 contiguous rounded asymmetries with a conglomerate size of approximately 1 x 1 cm. These findings do seem larger than noted on the craniocaudad view of the previous mammogram but similar in size to the nodules seen on the MLO view of the previous exam. Unfortunately, those nodules cannot be visualized on the MLO view of this study as the inferior most portion of the right breast could not be included on this study. These nodules have a generally benign appearance but I would recommend that a repeat ultrasound exam of the right breast be performed for further study. The enhancing nodule in the 7 o'clock position of the right breast at posterior depth seen on the MRI exam cannot be visualized with certainty on this study. I would recommend that this area be reevaluated by ultrasound, as well. The previous study did show a calcified mass deep in the right breast near the chest wall. That calcified mass is again visualized and does seem somewhat smaller on this study. The left breast is unchanged. IMPRESSION: 1. The small nodules in the right breast seen previously are again evident and do not appear to have changed adversely. However, the mass in the far posterior aspect of the right breast noted the MRI exam is difficult to identify on this study. Ultrasound of the right breast would be recommended for further evaluation. A repeat MRI breast exam may also be necessary. 2. There is no other evidence for malignancy. 3. The implants appear to be intact. ACR BI-RADS Category 0: Incomplete. (Needs additional imaging evaluation). Result letter will be mailed to the patient. Note: At least 10% of breast cancer is not imaged by mammography. Dictated by: Dictated on workstation # [id number]
== END ==
LOC: RAD 10:32
DX: Z12.31 Encounter for screening mammogram for malignant neoplasm of breast (principal); N63.10 Unspecified lump in the right breast, unspecified quadrant; Z98.82 Breast implant status
CPT/HCPCS: 77063; 77067; 93005